=== PATIENT | female | born 1960 | race African-American/Black ===

== ENCOUNTER → 2017-09-26 | Outpatient (CLI) | payer OTHER | LOC: BRMIMAGING 13:36 | PROVIDERS: ATTEND Internal Medicine | DX: M85.89 Other specified disorders of bone density and structure, multiple sites (principal); M06.9 Rheumatoid arthritis, unspecified; Z78.0 Asymptomatic menopausal state; Z80.3 Family history of malignant neoplasm of breast ==

== ENCOUNTER → 2018-11-12 | Outpatient (CLI) | payer OTHER | LOC: BRMIMAGING 14:48 ==